=== PATIENT | male | born 1995 | race Caucasian/White ===

== ENCOUNTER 2017-01-12 05:10 | Emergency (ER) | payer BC, OTHER ==
[2017-01-12] MEDS ORDERED: Ativan 2 MG/1 ML VIAL ONE (05:27)
[2017-01-12] MEDS ORDERED: Ativan 2 MG/1 ML VIAL IV ONE (05:27)
[2017-01-12] MEDS ORDERED: DILANTIN IV 250 MG/5 ML*** 1,000 MG in Sodium Chloride 0.9% 100 ML IVPB 100 ML IV ONE (05:28)
[2017-01-12] MEDS ORDERED: Sodium Chloride 0.9% 1000 ML 1,000 ML IV SCH (05:30)
--- NOTE | 2017-01-12 05:35 | ERPHSYRPT ---
- History of Present Illness Time Seen by Provider: 01/12/17 05:13 Source: patient, EMS Exam Limitations: no limitations Physician History: REPORTEDLY THIS MORNING PT HAD A TONIC-CLONIC SEIZURE LESS THAN 30 SECONDS IN DURATION AT WORK([employer]) AFTER HE FELT THIRSTY AND DIZZY. PT HAD ANOTHER SIMILAR SEIZURE IN THE AMBULANCE. PT DENIES PREVIOUS SEIZURE BUT STATES HIS FATHER HAD SEIZURES. PT ALSO C/O CHILLS, RIGHT HIP PAIN AND LEFT ANTERIOR CHEST PAIN IN THE PAST 10 MINUTES AND A LEFT EARACHE FOR THE PAST 1.5 DAYS; DENIES SHORTNESS OF AIR, ABDOMINAL PAIN, SORE THROAT, COUGH, HEADACHE. Allergies/Adverse Reactions: No Known Drug Allergies Allergy (Unverified 01/12/17 05:32) - Review of Systems Constitutional: Chills, Other (THIRST) Ears, Nose, & Throat: Ear Pain, No Throat Pain Respiratory: No Cough, No Dyspnea Cardiac: Chest Pain Abdominal/Gastrointestinal: No Abdominal Pain, No Vomiting Musculoskeletal: Joint Pain (RIGHT HIP PAIN) Neurological: Dizziness, Seizure (THIS AM), No Headache All Other Systems: Reviewed and Negative - Nursing Vital Signs Nursing Vital Signs: Initial Vital Signs Temperature 98.6 F 01/12/17 05:13 Pulse Rate 82 01/12/17 05:13 Respiratory Rate 20 01/12/17 05:13 Blood Pressure 158/77 01/12/17 05:13 Pain Scale Pain Intensity 0 - Physical Exam General Appearance: alert Eye Exam: PERRL/EOMI Ears, Nose, Throat Exam: TMs normal, pharynx normal, moist mucous membranes Neck Exam: normal inspection Respiratory Exam: lungs clear Cardiovascular Exam: normal heart sounds Gastrointestinal/Abdomen Exam: soft, normal bowel sounds Back Exam: normal range of motion Extremity Exam: normal inspection, normal range of motion, tenderness (MILD TENDERNESS OVER THE RIGHT HIP WITHOUT BRUISING), No pedal edema Neurologic Exam: alert, oriented x 3, cooperative, 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), other (BILATERAL UPPER EXTREMITY NUMBNESS; NO BABINSKI PRESENT.) Skin Exam: warm, dry - Course Nursing assessment & vital signs reviewed: Yes EKG Interpreted by Me: RATE (80), Sinus Rhythm, NORMAL AXIS, NORMAL INTERVALS - Radiology Exams Chest X-ray Interpretation: Interpreted by me, No Pneumonia Right Femur X-ray Interpretation: Interpreted by me, No Fracture Pelvis X-ray Interpretation: Interpreted by me, No Fracture - CT Exams Head CT Interpretation: Tele-radiologist Report (NORMAL HEAD/BRAIN CT) Cervical Spine CT Interpretation: Tele-radiologist Report (THERE IS NO EVIDENCE OF ACUTE FRACTURE OR TRAUMATIC SUBLUXATION. SMALL CENTRAL DISC PROTRUSION NOTED AT C4-C5. ) Ordered Tests: Active Orders 24 hr Category Date Time Status Accucheck STAT Care 01/12/17 05:23 Active Batch Maker STAT Care 01/12/17 05:24 Active Clean Catch Urine Specimen STAT Care 01/12/17 05:23 Active EKG-ER Only STAT Care 01/12/17 05:23 Active Oxygen-ED Only NASAL CANNULA 2 lpm Care 01/12/17 05:23 Active Pulse Oximetry (ED) STAT Care 01/12/17 05:23 Active CERVICAL SPINE WO CONTRAST [CT] Stat Exams 01/12/17 05:42 Taken CHEST 1 VIEW (PORTABLE) Stat Exams 01/12/17 05:24 Taken FEMUR Stat Exams 01/12/17 05:53 Taken HEAD WITHOUT CONTRAST [CT] Stat Exams 01/12/17 05:28 Taken PELVIS (1 OR 2 VIEWS) Stat Exams 01/12/17 05:53 Taken AMYLASE Stat Lab 01/12/17 05:50 Completed CBC W DIFF Stat Lab 01/12/17 05:50 Completed CMP Stat Lab 01/12/17 05:50 Completed ETHYL ALCOHOL Stat Lab 01/12/17 05:50 Completed LIPASE Stat Lab 01/12/17 05:50 Completed Lactic Acid Stat Lab 01/12/17 05:40 Completed MAGNESIUM Stat Lab 01/12/17 05:50 Completed TROPONIN Q3H Lab 01/12/17 05:50 Completed TROPONIN Q3H Lab 01/12/17 08:30 Ordered TROPONIN Q3H Lab 01/12/17 11:30 Ordered TROPONIN Q3H Lab 01/12/17 14:30 Ordered TROPONIN Q3H Lab 01/12/17 17:30 Ordered UA W/RFX UR CULTURE Stat Lab 01/12/17 05:24 Ordered Urine Triage Profile Stat Lab 01/12/17 05:24 Ordered Medication Summary Generic Name Dose Route Start Last Admin Trade Name Freq PRN Reason Stop Dose Admin Sodium Chloride 1,000 mls @ 100 mls/hr 01/12/17 05:30 01/12/17 05:42 Sodium Chloride 0.9% 1000 Ml IV 02/11/17 05:29 100 mls/hr .Q10H LATOSHA Administration Discontinued Medications Generic Name Dose Route Start Last Admin Trade Name Freq PRN Reason Stop Dose Admin Phenytoin Sodium 1,000 mg/ 120 mls @ 100 mls/hr 01/12/17 05:28 01/12/17 06:54 Sodium Chloride IV 01/12/17 06:39 Not Given STAT ONE Fosphenytoin Sodium 1,000 mg/ 120 mls @ 100 mls/hr 01/12/17 05:48 01/12/17 06 :00 Sodium Chloride IV 01/12/17 06:59 100 mls/hr STAT ONE Administration Lorazepam 1 mg 01/12/17 05:27 01/12/17 05:27 Ativan 2 Mg/1 Ml Vial IV 01/12/17 05:28 1 mg STAT ONE Administration Lorazepam Confirm 01/12/17 05:27 Ativan 2 Mg/1 Ml Vial Administered 01/12/17 05:28 Dose 2 mg .ROUTE .STK-MED ONE Potassium Chloride 10 meq 01/12/17 07:08 Klor Con 10 Meq PO 01/12/17 07:09 STAT ONE Lab/Rad Data: Laboratory Result Diagrams 01/12/17 05:50 01/12/17 05:50 Laboratory Results 01/12/17 01/12/17 01/12/17 Range/Units 05:50 05:50 05:50 WBC (4.0-10.5) K/mm3 RBC (4.1-5.6) M/mm3 Hgb (12.5-18.0) gm/dl Hct (42-50) % MCV (78-100) fl MCH (26-32) pg MCHC (32-36) g/dl RDW (11.5-14.0) % Plt Count (150-450) K/mm3 MPV (6-9.5) fl Gran % (36.0-66.0) % Lymphocytes % (24.0-44.0) % Monocytes % (0.0-12.0) % Eosinophils % (0.00-5.0) % Basophils % (0.0-0.4) % Basophils # (0-0.4) Sodium 142 (136-145) mEq/L Potassium 3.4 L (3.5-5.1) mEq/L Chloride 105 (98-107) mEq/L Carbon Dioxide 27.9 (21-32) mEq/L Anion Gap 12.0 (5-15) MEQ/L BUN 8 L (9-20) mg/dL Creatinine 1.11 (0.55-1.30) mg/dl Estimated GFR > 60 ML/MIN Glucose 104 (70-110) MG/DL Lactic Acid (0.4-2.0) Calcium 9.0 (8.5-10.1) mg/dL Magnesium 1.9 (1.8-2.4) mg/dL Total Bilirubin 0.50 (0.2-1.0) mg/dL AST 83 H (15-37) U/L ALT 333 H (12-78) U/L Alkaline Phosphatase 61 (46-116) U/L Troponin I < 0.017 (0.000-0.056) ng/ml Serum Total Protein 7.4 (6.4-8.2) gm/dL Albumin 3.9 (3.4-5.0) g/dL Amylase 49 (25-115) U/L Lipase 76 (73-393) U/L Ethyl Alcohol < 0.010 (0.00-0.01) % 01/12/17 01/12/17 Range/Units 05:50 05:40 WBC 9.9 (4.0-10.5) K/mm3 RBC 5.13 (4.1-5.6) M/mm3 Hgb 14.5 (12.5-18.0) gm/dl Hct 43.8 (42-50) % MCV 85.4 (78-100) fl MCH 28.3 (26-32) pg MCHC 33.1 (32-36) g/dl RDW 13.5 (11.5-14.0) % Plt Count 290 (150-450) K/mm3 MPV 10.7 H (6-9.5) fl Gran % 55.3 (36.0-66.0) % Lymphocytes % 30.1 (24.0-44.0) % Monocytes % 10.2 (0.0-12.0) % Eosinophils % 3.3 (0.00-5.0) % Basophils % 1.1 (0.0-0.4) % Basophils # 0.11 (0-0.4) Sodium (136-145) mEq/L Potassium (3.5-5.1) mEq/L Chloride (98-107) mEq/L Carbon Dioxide (21-32) mEq/L Anion Gap (5-15) MEQ/L BUN (9-20) mg/dL Creatinine (0.55-1.30) mg/dl Estimated GFR ML/MIN Glucose (70-110) MG/DL Lactic Acid 1.2 (0.4-2.0) Calcium (8.5-10.1) mg/dL Magnesium (1.8-2.4) mg/dL Total Bilirubin (0.2-1.0) mg/dL AST (15-37) U/L ALT (12-78) U/L Alkaline Phosphatase (46-116) U/L Troponin I (0.000-0.056) ng/ml Serum Total Protein (6.4-8.2) gm/dL Albumin (3.4-5.0) g/dL Amylase (25-115) U/L Lipase (73-393) U/L Ethyl Alcohol (0.00-0.01) % - Progress Progress Note: 01/12/17 06:46 PT NOW HAS GOOD SENSATION OF UPPER EXTREMITIES. - Departure Time of Disposition: 07:14 Departure Disposition: Home Clinical Impression: SEIZURE, MILD HYPOKALEMIA, RIGHT HIP PAIN, CHEST PAIN Condition: Stable Critical Care Time: No Referrals: DOCTOR,NO FAMILY [Primary Care Provider] - Instructions: Seizure Disorder -- Adult Additional Instructions: FOLLOW UP WITH PRIVATE DOCTOR TOMORROW. Prescriptions: Phenytoin Sod Extended 100 mg* [Dilantin 100 MG] 100 mg PO BID #60 capsule
[2017-01-12] MEDS ORDERED: Sodium Chloride 0.9% 1000 ML 1,000 ML ONE (05:42)
[2017-01-12] MEDS ORDERED: cereBYX 50 MG/ML*** 1,000 MG in Sodium Chloride 0.9% 100 ML IVPB 100 ML IV ONE (05:48)
[2017-01-12 06:15] LABS: BASOPHIL % 1.1 % (0.0-0.4); Eosinophil % 3.3 % (0.00-5.0); Granulocytes % 55.3 % (36.0-66.0); Lymphocytes % 30.1 % (24.0-44.0); Mean Cell Volume 85.4 fl (78-100); Mean Corpuscular Hemoglobin 28.3 pg (26-32); Mean Platelet Volume 10.7 fl (6-9.5); Monocytes % 10.2 % (0.0-12.0); Platelet Count 290 K/mm3 (150-450); Red Blood Count 5.13 M/mm3 (4.1-5.6); Red Cell Distribution Width 13.5 % (11.5-14.0); White Blood Count 9.9 K/mm3 (4.0-10.5)
[2017-01-12 06:21] LABS: MAGNESIUM 1.9 mg/dL (1.8-2.4)
[2017-01-12 06:26] LABS: ALBUMIN 3.9 g/dL (3.4-5.0); ALKALINE PHOSPHATASE 61 U/L (46-116); BLOOD UREA NITROGEN 8 mg/dL (9-20); CHLORIDE 105 mEq/L (98-107); Carbon Dioxide 27.9 mEq/L (21-32); ETHYL ALCOHOL < 0.010 % (0.00-0.01); Glucose 104 MG/DL (70-110); Potassium 3.4 mEq/L (3.5-5.1); SGOT/AST 83 U/L (15-37); SGPT/ALT 333 U/L (12-78); SODIUM 142 mEq/L (136-145); Total Protein 7.4 gm/dL (6.4-8.2)
[2017-01-12 06:52] VITALS: PULSE 80; O2SAT 98
[2017-01-12] MEDS ORDERED: Klor Con 10 MEQ PO ONE ×2 (07:08→07:35)
[2017-01-12 07:40] LABS: ADD URINE CULTURE? NO (NO); Bacteria RARE /HPF (NEGATIVE); Bilirubin NEGATIVE (NEGATIVE); Blood NEGATIVE Ery/ul (0-5); COMPLETE URINE MICROSCOPIC? YES; Collection Type VOID; Glucose TRACE mg/dL (NEGATIVE); Leukocyte Esterase TRACE (NEGATIVE); WBC 0-2 /HPF (0-5)
[2017-01-12 08:02] VITALS: BP 160/72
--- NOTE | 2017-01-12 16:35 | XRAY ---
Exam: AP 80 semi-upright portable chest film from 0628 hours on 01/12/2017. Comparison: None. Indication: Chest pain following a seizure. Findings: The film was obtained in a lordotic projection. The transverse heart size is normal. Pulmonary vascularity appears within normal limits. Inflation of the lungs is average. No air space infiltrates, pneumothorax, or pleural fluid is seen. Bones appear grossly intact. Impression: 1. No acute cardiopulmonary disease is seen.
--- NOTE | 2017-01-13 22:27 | XRAY ---
Exam: AP film of the pelvis (2 images) from 01/12/2017. Comparison: None. Indication: Right hip and back pain following seizure. Findings: No acute fracture or dislocation is seen within the pelvis or either hip. The sacroiliac joints and hip joint spaces appear well-preserved and are symmetric. The symphysis pubis appears unremarkable. No other focal bone lesion is seen. Minimal remnants of the growth plates within both femoral heads is seen. The visualized bowel gas pattern is unremarkable. The urinary bladder is mildly distended. Impression: 1. No acute fracture or dislocation is seen within the pelvis or either hip.
--- NOTE | 2017-01-13 22:30 | XRAY ---
Exam: 4 views of the right femur from 01/12/2017. Comparison: None. Indication: Right hip pain following seizure. Findings: AP and mildly oblique films of the right hip and proximal half of the right femur were obtained. In addition, AP and lateral images of the middle and distal thirds of the right femur were obtained. I see no acute right femur fracture or other focal bone lesion. No radiopaque soft tissue foreign body is seen. The right hip joint space and right knee joint space appear unremarkable. Impression: 1. No acute fracture of the right femur is seen.
--- NOTE | 2017-01-14 02:24 | XRAY ---
Exam: CT of the head without IV contrast from 01/12/2017. CTDI: 49.11 Comparison: None. Indication: 21-year-old male with posttraumatic headache, headache following seizure. Technique: Non-IV contrast axial images were obtained through the abdomen and pelvis. Reconstructed coronal and sagittal images were created and reviewed. Findings: The ventricles appear of unremarkable size and configuration. No focal mass effect or midline shift is seen. No acute intracranial bleed or abnormal extra-axial fluid collection is seen. Occasional streak artifact is seen on the lower cuts through the brain. Some repeat axial images were obtained at this level. No low attenuation infarct is seen. The moctezuma matter-white matter interfaces appear unremarkable. The cortical sulci and basilar cisterns appear normal. The visualized paranasal sinuses are normal. The calvarium of the skull appears intact. No fracture is seen. The visualized mastoid air cells appear normal. No mastoid sinus effusion is seen. Impression: 1. Unremarkable nonenhanced CT examination of the brain. No acute intracranial bleed or other acute intracranial process is seen.
--- NOTE | 2017-01-14 02:32 | XRAY ---
Exam: CT of the cervical spine without IV contrast from 01/12/2017. Comparison: None. Indication: Seizure, neck pain/upper extremity numbness. Technique: Non-IV contrast axial images were obtained through the cervical spine. Reconstructed coronal and sagittal images were created and reviewed. Findings: I see no evidence of acute cervical spine fracture, AP subluxation, or prevertebral soft tissue swelling. The preodontoid space is normal. No jumped facets are seen on the sagittal images. I see no evidence of central canal stenosis. No cervical neural foraminal narrowing is seen throughout the cervical spine. The lung apices appear unremarkable. The thyroid gland appears grossly unremarkable. There is a suggestion of a minimal midline disc protrusion at C4-C5. This does not significantly impinge upon the canal or thecal sac. See axial image #46 and sagittal image #28. Impression: 1. No acute cervical spine fracture or AP subluxation is seen. 2. Minimal central disc protrusion noted at C4-C5.
== END 2017-01-12 08:02 | disposition home or self-care (01) ==
LOC: ED 05:10
DX: R56.9 Unspecified convulsions (principal); E87.6 Hypokalemia; M25.551 Pain in right hip; R07.89 Other chest pain
CPT/HCPCS: 36415; 70450; 71010; 72125; 72170; 73552; 80053; 80307; 81000; 82150; 82962; 83605; 83690; 83735; 84484; 85025; 93005; 93041; 96360; 96361; 96365; 99284; G0481; J1165; J2060; Q2009; A9270-GY

== ENCOUNTER 2022-08-28 06:25 | Emergency (ER) | payer BC ==
--- NOTE | 2022-08-28 07:08 | ERPHSYRPT ---
- History of Present Illness Time Seen by Provider: 08/28/22 06:40 Source: patient Exam Limitations: no limitations Patient Subjective Stated Complaint: pt states "I feel like I can't swallow." Triage Nursing Assessment: pt ambulatory to bed by self, pt alert and oriented x3, pt c/o difficulty swallowing intermittently for 2 weeks, this particular episode started around 0200 while patient was at work, pt in no respiratory distress, pt anxious, respirations easy, skin pwd Physician History: This is a 27-year-old white male who presents with difficulty swallowing intermittently for the last 2 weeks. There is no pain. He also felt that he cannot swallow so he is having trouble with shortness of breath as well. On arrival to the emergency department he appears anxious and his room air oxygenation saturation level is 100%. He has not had any flulike symptoms. He has not had a fever and he denies cough. He does not recall the initial event that occurred 2 weeks ago when the situation started. He is speaking clearly and handling his secretions normally. It is difficult to swallow liquids and solids. Timing/Duration: week(s), intermittent Severity: mild Associated Symptoms: denies symptoms Allergies/Adverse Reactions: No Known Drug Allergies Allergy (Verified 08/28/22 06:27) Home Medications: No Reportable Medications [No Reported Medications] 08/28/22 [History] Hx Tetanus, Diphtheria Vaccination/Date Given: Yes Hx Influenza Vaccination/Date Given: Yes Hx Pneumococcal Vaccination/Date Given: No Immunizations Up to Date: Yes Travel Risk - International Travel Have you traveled outside of the country in past 3 weeks: No - Coronavirus Screening Are you exhibiting any of the following symptoms?: No Close contact with a COVID-19 positive Pt in past 14-21 Days: No - Vaccine Status Have you recieved a Covid-19 vaccination: No - Review of Systems Constitutional: No Symptoms Eyes: No Symptoms Ears, Nose, & Throat: Other (Difficult to swallow), No Hoarse, No Painful Swallowing Respiratory: No Symptoms Cardiac: No Symptoms Abdominal/Gastrointestinal: No Symptoms Genitourinary Symptoms: No Symptoms Musculoskeletal: No Symptoms Skin: No Symptoms Neurological: No Symptoms Psychological: No Symptoms Endocrine: No Symptoms Hematologic/Lymphatic: No Symptoms Immunological/Allergic: No Symptoms All Other Systems: Reviewed and Negative - Past Medical History Pertinent Past Medical History: Yes Neurological History: Seizures ENT History: No Pertinent History Cardiac History: No Pertinent History Respiratory History: No Pertinent History Endocrine Medical History: No Pertinent History Musculoskeletal History: No Pertinent History GI Medical History: No Pertinent History History: No Pertinent History Psycho-Social History: No Pertinent History Male Reproductive Disorders: No Pertinent History - Past Surgical History Past Surgical History: No Neuro Surgical History: No Pertinent History Cardiac: No Pertinent History Respiratory: No Pertinent History Gastrointestinal: No Pertinent History Genitourinary: No Pertinent History Musculoskeletal: No Pertinent History Male Surgical History: No Pertinent History - Social History Smoking Status: Former smoker Exposure to second hand smoke: No Drug Use: none Patient Lives Alone: No - Nursing Vital Signs Nursing Vital Signs: Initial Vital Signs Temperature 97.6 F 08/28/22 06:29 Pulse Rate 71 08/28/22 06:29 Respiratory Rate 18 08/28/22 06:29 Blood Pressure 145/120 08/28/22 06:29 O2 Sat by Pulse Oximetry 98 08/28/22 06:29 Pain Scale Pain Intensity 0 - Physical Exam General Appearance: no apparent distress, alert, anxiety Eye Exam: PERRL/EOMI, eyes nml inspection Ears, Nose, Throat Exam: normal ENT inspection, moist mucous membranes Neck Exam: normal inspection, non-tender, supple, full range of motion Respiratory Exam: normal breath sounds, lungs clear, airway intact, No chest tenderness, No respiratory distress, No wheezing, No stridor Cardiovascular Exam: regular rate/rhythm, normal heart sounds, normal peripheral pulses Gastrointestinal/Abdomen Exam: No tenderness Rectal Exam: not done Back Exam: normal inspection, normal range of motion, No CVA tenderness, No vertebral tenderness Extremity Exam: normal inspection, normal range of motion, pelvis stable Neurologic Exam: alert, oriented x 3, cooperative, foundation stage teacher II-XII nml as tested, normal mood/affect, nml cerebellar function, nml station & gait, sensation nml Skin Exam: normal color, warm, dry Lymphatic Exam: No adenopathy SpO2 Interpretation: normal SpO2: 98 O2 Delivery: Room Air - Course Nursing assessment & vital signs reviewed: Yes Ordered Tests: Active Orders 24 hr Category Date Time Status NECK WO CONTRAST [CT] Stat Exams 08/28/22 06:50 Completed Lab/Rad Data: Laboratory Results 08/28/22 08/28/22 Range/Units 07:01 07:01 Influenza Type A Ag NEGATIVE (NEGATIVE) Influenza Type B Ag NEGATIVE (NEGATIVE) RSV (PCR) NEGATIVE (NEGATIVE) SARS-CoV-2 (PCR) NEGATIVE (NEGATIVE) Group A Strep Antibody NOT DETECTED (NEGATIVE) - Progress Progress Note: 08/28/22 07:59 ct soft tissue neck negative for acute issues. prominent parotid gland with fatty changes reactive deep cervical lymphadenopathy medical issue low complexity issue. i reviewed pt work up results. Counseled pt/family regarding: lab results, diagnosis, need for follow-up, rad results Medical Desision Making - Diagnostic Testing Radiological Interpretation: Reviewed by me, Teleradiologist Report - Risk of complications Minimal Risk: Minimal risk of morbidity - Departure Departure Disposition: Home Clinical Impression: Difficulty swallowing Condition: Stable Critical Care Time: No Referrals: YAMEL AYERS NP [NON-STAFF PHY W/O PRIVILEGES] - Follow up/PCP as directed Additional Instructions: Continue taking in clear and full liquids and solid meals as tolerated. Follow- up with your primary care provider on 08/29/2022 to make arranges for further evaluation management.
[2022-08-28 07:41] LABS: INFLUENZA A NEGATIVE (NEGATIVE); INFLUENZA B NEGATIVE (NEGATIVE); RESPIRATORY SYNCTIAL VIRUS NEGATIVE (NEGATIVE); SARS-CoV-2 Xpert Express NEGATIVE (NEGATIVE)
--- NOTE | 2022-08-28 07:48 | XRAY ---
CLINICAL HISTORY:dysphagia COMPARISON:None; TECHNIQUES:CT scan of the neck without intravenous contrast administration. Images were acquired in axial cuts with coronal and sagittal reformation. Total DLP 503.33 mGy*cm. CTDI 17.15 mGy; FINDINGS: Normal CT appearance of the thyroid gland. The parotid glands are prominent and show diffuse fatty changes with no masses or stones detected. Normal CT appearance of the submandibular salivary glands. Normal appearance of the laryngeal framework with no supra or supraglottic laryngeal masses seen on this unenhanced examination. There are few deep cervical reactive lymph nodes noted bilaterally. The largest measuring 0.9 cm at level 1b on the right side. Bone window settings showed no evidence of fractures or destructive lesions. IMPRESSION: 1-Prominent parotid glands with fatty changes. 2-Reactive deep cervical lymphadenopathies. Electronically Signed by: Haleigh Ibrahim MD. (08/28/2022 06:45:34 ELECTROTYPER APPRENTICE)
[2022-08-28 08:12] VITALS: BP 135/91; PULSE 65; O2SAT 96
== END 2022-08-28 08:17 | disposition home or self-care (01) ==
LOC: ED 06:25
DX: R13.10 Dysphagia, unspecified (principal); Z20.828 Contact with and (suspected) exposure to other viral communicable diseases
CPT/HCPCS: 0241U; 70490; 87651; 99283